=== PATIENT | male | born 1990 | race Caucasian/White ===

== ENCOUNTER 2020-07-23 12:01 | Emergency (ER) | payer MEDICARE, MEDICAID ==
[~2020-07-23 12:01] MED LIST: AMOXICILLIN875 MG; CELEBREX100 MG PO; CIPRO 500MG TA500 MG PO; COUMADIN; FUROSEMIDE; HYDROXYZINE50 MG PO; NORFLEX100 MG PO; TYLENOL 650MG650 M2 PO; VITAMIN C500 MG PO; VITAMIN K0.1 MG PO; XANAX0.25 MG PO
[2020-07-23 14:21] VITALS: BP 105/51
--- NOTE | 2020-07-23 18:12 | NUR ---
spoke with Triston, He states that he has returned to [place]. He was in a difficult situation with his mother and stepfather. He is staying with his brother and sisterinlaw. His brother would like for him to get established with a doctor here in [place]. He states he has Medicare at this time. He also states that he has had [employer] in the past. Gave him the Case managment card so that he could help with the coordination of care.
== END 2020-07-23 14:13 | disposition short-term general hospital (02) ==
LOC: ED 12:01
DX: R60.0 Localized edema (principal); L02.91 Cutaneous abscess, unspecified; M62.838 Other muscle spasm; G82.20 Paraplegia, unspecified; F17.210 Nicotine dependence, cigarettes, uncomplicated; Z86.718 Personal history of other venous thrombosis and embolism
CPT/HCPCS: J1650

== ENCOUNTER → 2021-01-15 | Outpatient (CLI) | payer MEDICARE, MEDICAID ==
[2021-01-15 17:13] LABS: POTASSIUM 3.9 mmol/L (3.5-5.1)
[2021-01-15 17:14] LABS: ALBUMIN 4.3 g/dL (3.5-5.0)
[2021-01-15 17:15] LABS: CALCIUM 9.5 mg/dL (8.3-10.5)
[2021-01-15 17:16] LABS: TOTAL PROTEIN 7.1 g/dL (6.4-8.3)
[2021-01-15 17:18] LABS: TOTAL BILIRUBIN 1.2 mg/dL (0.2-1.2)
[2021-01-22 16:18] LABS: FOLATE (FOLIC ACID) 6.2 ng/mL (2.0-20.0)
== END ==
LOC: LAB 16:42
PROVIDERS: Internal Medicine
DX: G60.9 Hereditary and idiopathic neuropathy, unspecified (principal); E78.2 Mixed hyperlipidemia

== ENCOUNTER → 2021-12-16 | Outpatient (CLI) | payer MEDICARE, MEDICAID ==
[2021-12-16 13:58] LABS: BASO # 0.02 K/mm3 (0.02-0.10); EOS # 0.15 K/mm3 (0.04-0.40); EOS % 1.8 % (0.0-4.0); HEMATOCRIT 47.4 % (42.0-52.0); HEMOGLOBIN 16.2 g/dL (13.5-18.0); LYMPH# 1.76 K/mm3 (1.50-4.00); MEAN CELL VOLUME 95 fl (78-100); MEAN CORPUSCULAR HEMOGLOBIN 33 pg (27-31); MEAN CORPUSCULAR HGB CONC 34 g/dL (33-37); MEAN PLATELET VOLUME 8.3 fl (7.4-10.4); MONO # 0.56 K/mm3 (0.20-0.80); NEU # 5.71 K/mm3 (1.40-6.50); PLATELET COUNT 189 K/mm3 (130-400); RED BLOOD COUNT 4.97 M/mm3 (4.20-5.60); RED CELL DISTRIBUTION WIDTH 12.2 % (11.5-14.5); WHITE BLOOD COUNT 8.2 K/mm3 (4.8-10.8)
[2021-12-16 14:07] LABS: POTASSIUM 3.9 mmol/L (3.5-5.1); SODIUM 142 mmol/L (136-145)
[2021-12-16 14:08] LABS: ALBUMIN 4.3 g/dL (3.5-5.0); CALCIUM 9.8 mg/dL (8.3-10.5)
[2021-12-16 14:10] LABS: GLUCOSE 74 mg/dL (75-110); TOTAL PROTEIN 6.6 g/dL (6.4-8.3)
[2021-12-16 14:11] LABS: CARBON DIOXIDE 27 mmol/L (22-29)
[2021-12-16 14:12] LABS: TOTAL BILIRUBIN 1.5 mg/dL (0.2-1.2)
[2021-12-16 14:15] LABS: AST-SGOT 16 U/L (5-34)
[2021-12-16 14:17] LABS: ALT/SGPT 12 U/L (0-55)
[2021-12-16 15:45] LABS: ERYTHROCYTE SEDIMENTATION RATE 0 mm/hr (0-15)
== END ==
LOC: RAD 13:39
PROVIDERS: Internal Medicine
DX: M43.22 Fusion of spine, cervical region (principal); M54.50 Low back pain, unspecified; G89.29 Other chronic pain; G82.20 Paraplegia, unspecified; N31.2 Flaccid neuropathic bladder, not elsewhere classified; K59.2 Neurogenic bowel, not elsewhere classified; G60.9 Hereditary and idiopathic neuropathy, unspecified; F41.1 Generalized anxiety disorder; E78.2 Mixed hyperlipidemia; I10 Essential (primary) hypertension; Z93.2 Ileostomy status

== ENCOUNTER → 2022-01-08 | Outpatient (CLI) | payer MEDICARE, MEDICAID ==
[2022-01-10 07:42] LABS: HERPES SIMPLEX TYPE 1 IGG 0.11 Index (()); HERPES SIMPLEX TYPE 1 IGG INTP Negative (Negative)
== END ==
LOC: LAB 16:32
PROVIDERS: Nurse Practitioner Family
DX: L98.9 Disorder of the skin and subcutaneous tissue, unspecified (principal)

== ENCOUNTER → 2022-06-17 | Outpatient (CLI) | payer MEDICARE, MEDICAID ==
[2022-06-17 14:37] LABS: BASO # 0.04 K/mm3 (0.02-0.10); EOS # 0.37 K/mm3 (0.04-0.40); EOS % 4.5 % (0.0-4.0); HEMATOCRIT 47.3 % (42.0-52.0); HEMOGLOBIN 15.9 g/dL (13.5-18.0); LYMPH# 2.05 K/mm3 (1.50-4.00); MEAN CELL VOLUME 97 fl (78-100); MEAN CORPUSCULAR HEMOGLOBIN 33 pg (27-31); MEAN CORPUSCULAR HGB CONC 34 g/dL (33-37); MONO # 0.63 K/mm3 (0.20-0.80); NEU # 5.12 K/mm3 (1.40-6.50); PLATELET COUNT 243 K/mm3 (130-400); RED BLOOD COUNT 4.89 M/mm3 (4.20-5.60); RED CELL DISTRIBUTION WIDTH 12.2 % (11.5-14.5); WHITE BLOOD COUNT 8.2 K/mm3 (4.8-10.8)
[2022-06-17 14:44] LABS: ALBUMIN 4.1 g/dL (3.5-5.0)
[2022-06-17 14:45] LABS: POTASSIUM 3.9 mmol/L (3.5-5.1)
[2022-06-17 14:46] LABS: CALCIUM 9.5 mg/dL (8.3-10.5)
[2022-06-17 14:47] LABS: TOTAL PROTEIN 6.7 g/dL (6.4-8.3)
[2022-06-17 14:49] LABS: TOTAL BILIRUBIN 0.8 mg/dL (0.2-1.2)
== END ==
LOC: LAB 14:17
PROVIDERS: Internal Medicine
DX: K58.0 Irritable bowel syndrome with diarrhea (principal); M54.50 Low back pain, unspecified; G89.29 Other chronic pain; G82.20 Paraplegia, unspecified; I10 Essential (primary) hypertension; N31.2 Flaccid neuropathic bladder, not elsewhere classified; G60.9 Hereditary and idiopathic neuropathy, unspecified; F41.1 Generalized anxiety disorder; E78.2 Mixed hyperlipidemia; I82.409 Acute embolism and thrombosis of unspecified deep veins of unspecified lower extremity; L70.9 Acne, unspecified; K90.9 Intestinal malabsorption, unspecified; Z93.2 Ileostomy status